=== PATIENT | female | born 1945 | race Caucasian/White ===

== ENCOUNTER 2018-12-05 09:49 | Observation (INO) | payer OTHER ==
[2018-12-05 10:05] VITALS: BMI 27.4
--- NOTE | 2018-12-05 12:43 | PDOC ---
Documentation entered by Chau Albert SCRIBE, acting as scribe for Alondra Dudley MD. Alondra Dudley MD: This documentation has been prepared by the scribe, Chau Albert SCRIBE, under my direction and personally reviewed by me in its entirety. I confirm that the documentation accurately reflects all work, treatment, procedures, and medical decision making performed by me. History of Present Illness - General Chief Complaint: Injury Stated Complaint: FALL History Source: Care Provider Exam Limitations: Dementia - History of Present Illness Initial Comments: 12/05/18 12:51 The patient is a 72 year old female with a significant past medical history of alzheimer's dementia who presents to the emergency department from home, via EM , s/p fall earlier today. It was noted via EMS that the patient experienced an unwitnessed fall this morning after eating breakfast. The patient was unable to get up without cafe assistant but was able to ambulate afterwards. The patient states that she lives at home with her :the patient has a home health aide that come to her home. She denies the use of a walker or cane to ambulate. She denies any pain or other complaints at time of exam per pt aid at bedside , states she is only with patient m/t/w only during day hours. and when she arrived this am pt was on the floor. per her who cant state what happened pt was on the floor since that time, all night. per aid , pt is currently unsteady on her feet, and appears more confused than normal. 12/05/18 16:38 Past History - Past Medical History Allergies/Adverse Reactions: Allergies Allergy/AdvReac Type Severity Reaction Status Date / Time No Known Drug Allergies Allergy Unverified 02/12/15 14:14 Home Medications: Ambulatory Orders Aspirin [Aspirin EC] 81 mg PO DAILY 12/05/18 Atorvastatin Ca [Lipitor] 20 mg PO HS 12/05/18 Ferrous Sulfate [Feosol] 325 mg PO BID 12/05/18 Fluoxetine HCl [Prozac -] 20 mg PO DAILY 12/05/18 Memantine HCl [Namenda Xr] 28 mg PO DAILY 12/05/18 Olmesartan Medoxomil [Benicar (Nf)] 40 mg PO DAILY 12/05/18 Rivastigmine 1 each TD DAILY 12/05/18 Vit B12/Levomefolate/Vit B6/B2 [Cerefolin Tablet] 1 each PO DAILY 12/05/18 COPD: No Hypercholesterolemia: Yes - Suicide/Smoking/Psychosocial Hx Smoking History: Never smoked Hx Alcohol Use: Yes (SOCIAL) Drug/Substance Use Hx: No Review of Systems - Review of Systems Able to Perform ROS?: Yes (severe dementia.) Comments:: 12/05/18 12:52 GENERAL/CONSTITUTIONAL: (+)fall. No fever or chills. No weakness. HEAD, EYES, EARS, NOSE AND THROAT: No change in vision. No ear pain or discharge. No sore throat. CARDIOVASCULAR: No chest pain or shortness of breath. RESPIRATORY: No cough, wheezing, or hemoptysis. GASTROINTESTINAL: No nausea, vomiting, diarrhea or constipation. GENITOURINARY: No dysuria, frequency, or change in urination. MUSCULOSKELETAL: No joint or muscle swelling or pain. No neck or back pain. SKIN: No rash NEUROLOGIC: No headache, vertigo, loss of consciousness, or change in strength/ sensation. ENDOCRINE: No increased thirst. No abnormal weight change. HEMATOLOGIC/LYMPHATIC: No anemia, easy bleeding, or history of blood clots. ALLERGIC/IMMUNOLOGIC: No hives or skin allergy. *Physical Exam - Vital Signs Last Vital Signs Temp Pulse Resp BP Pulse Ox 97.5 F L 82 18 132/75 100 12/05/18 10:00 12/05/18 10:00 12/05/18 10:00 12/05/18 10:00 12/05/18 10:00 - Physical Exam Comments: 12/05/18 12:41 awake alert head atrumatic. cervical spine nontender. facies symmetric. speech clear. lungs clear bilaterally heart rrr no mrg abd soft nt nd.exxt wwp . skin warm and dry. moves all four ext. alert oriented x 1. strength 5/5 all four ext symmetric. skin warm and dry no eccymosis. no rash. Heart Score/ECG Review #1 General ECG Interpretation: Sinus Rhythm, Normal Rate, Normal Intervals, No acute ischemic changes (TWI III, AVF n old comparison) ED Treatment Course - LABORATORY CBC & Chemistry Diagram: 12/05/18 12:44 12/05/18 12:44 - RADIOLOGY Radiology Studies Ordered: Category Date Time Status HEAD CT WITHOUT CONTRAST [CT] Stat CT Scan 12/05/18 12:36 Ordered CHEST - PA [RAD] Stat Radiology 12/05/18 12:38 Ordered Medical Decision Making - Medical Decision Making 12/05/18 12:39 72 yo F wit h/o antoinette, at home with family and home health aid, had unwitnessed fall todya. unsure exacetly what time. believes after she had breakfast. found on floor. initially when found pt she was awake. she was difficul tto get up off of the ground but once up she was able to ambulate. no currently complaints of pain. pt unable to provide any details of the story due to severe dementia. history per health aid. on exam nontender joing. head atraumatic. pelvis stable. pt alert oriented x 1. plan ct head syncope work up with ekg labs ua. 12/05/18 16:06 ct head negative. cxr unremarkable. labs unremarkable. concerns for syncope because pt unwitness. will admit tele obs r/o syncope dysrhtymia. 12/05/18 16:18 d/w dr prerna Vega, will admit pt tele obs. 12/05/18 16:39 Pt with unsteady gait in ED. may require PT assessmnt for safe discharge. no help thurs - weekend. may require pt and placement for safe discharge, risk of fall. reviewed workup thus far with pt aid. admitted. to telemetry. *DC/Admit/Observation/Transfer Diagnosis at time of Disposition: Syncope, Unsteady gait - Discharge Dispostion Decision to Admit order: Yes - Referrals Referrals: Genie Lane MD [Primary Care Provider] - - Patient Instructions - Post Discharge Activity
[2018-12-05 13:04] LABS: BASO % 0.6 % (0-2.0); EOS % 0.2 % (0-4.5); HEMATOCRIT 37.8 % (32.4-45.2); HEMOGLOBIN 12.7 GM/dL (10.7-15.3); LYMPH % 12.4 % (8-40); MCHC 33.7 g/dl (32.0-36.0); MEAN CELL VOLUME 88.9 fl (80-96); MEAN PLT VOLUME 7.6 fl (7.5-11.1); MONO % 8.4 % (3.8-10.2); NEUT % 78.4 % (42.8-82.8); PLATELET COUNT 221 K/MM3 (134-434); RBC 4.25 M/mm3 (3.60-5.2); RDW 14.1 % (11.6-15.6)
[2018-12-05 13:15] LABS: INR 1.07 (0.83-1.09); PROTHROMBIN TIME (PATIENT) 12.6 SEC (9.7-13.0)
[2018-12-05 13:18] LABS: ACTIVATED PTT 34.5 SECONDS (25.2-36.5)
[2018-12-05 13:31] LABS: ALBUMIN 3.7 g/dl (3.4-5.0); ALK PHOS 105 U/L (45-117); ANION GAP 9 MMOL/L (8-16); BILIRUBIN,TOTAL 0.5 mg/dL (0.2-1); BLOOD UREA NITROGEN 18 mg/dL (7-18); CALCIUM 8.4 mg/dL (8.5-10.1); CHLORIDE 108 mmol/L (98-107); CO2 25 mmol/L (21-32); CREATININE 0.7 mg/dL (0.55-1.3); GLUCOSE,RANDOM 99 mg/dL (74-106); POTASSIUM 3.7 mmol/L (3.5-5.1); SGOT/AST 32 U/L (15-37); SGPT/ALT 23 U/L (13-61); SODIUM 142 mmol/L (136-145); TOT PROT 6.8 g/dl (6.4-8.2)
--- NOTE | 2018-12-05 15:12 | EKG ---
Test Reason : Blood Pressure : / mmHG Vent. Rate : 083 BPM Atrial Rate : 083 BPM P-R Int : 144 ms QRS Dur : 086 ms QT Int : 378 ms P-R-T Axes : 015 023 012 degrees QTc Int : 444 ms NORMAL SINUS RHYTHM CANNOT RULE OUT ANTERIOR INFARCT , AGE UNDETERMINED ABNORMAL ECG WHEN COMPARED WITH ECG OF 31-DEC-2006 12:16, NO SIGNIFICANT CHANGE WAS FOUND Confirmed by KELSEA BENTLEY, JOSÉ MIGUEL ([id number]) on 12/05/2018 3:12:27 PM Referred By: Confirmed By:JOSÉ MIGUEL ENAMORADO MD
[2018-12-05] MEDS ORDERED: ACETAMINOPHEN 325 MG TABLET (FP) PO PRN (16:16)
[2018-12-05] MEDS: INSULIN SLIDING SCALE (NOVOLOG) 1 VIAL SQ SCH ×2 (18:38→21:47)
[2018-12-05] MEDS ORDERED: FERROUS SO4 325 MG TABLET (FP) ONE (21:37)
[2018-12-05] MEDS ORDERED: ATORVASTATIN CA 10 MG TABLET (FP) ONE (21:37)
[2018-12-05] MEDS: FERROUS SO4 325 MG TABLET (FP) PO SCH (21:47)
[2018-12-05] MEDS ORDERED: ATORVASTATIN CA 20 MG TABLET (FP) PO SCH (22:00)
[2018-12-06] MEDS ORDERED: LORazepam 2 MG/ML SDV VIAL IVPUSH ONE (02:16)
[2018-12-06] MEDS ORDERED: diphenhydrAMINE HCL 25 MG CAPSULE (FP) PO ONE ×2 (02:16→02:48)
[2018-12-06] MEDS ORDERED: LORazepam 2 MG/ML SDV VIAL ONE (02:48)
[2018-12-06] MEDS: INSULIN SLIDING SCALE (NOVOLOG) 1 VIAL SQ SCH ×2 (07:17→12:01)
[2018-12-06 09:02] LABS: BASO % 0.7 % (0-2.0); EOS % 1.5 % (0-4.5); HEMATOCRIT 36.7 % (32.4-45.2); HEMOGLOBIN 12.4 GM/dL (10.7-15.3); LYMPH % 17.6 % (8-40); MCH 30.3 pg (25.7-33.7); MCHC 33.9 g/dl (32.0-36.0); MEAN CELL VOLUME 89.4 fl (80-96); MEAN PLT VOLUME 7.7 fl (7.5-11.1); MONO % 12.2 % (3.8-10.2); PLATELET COUNT 190 K/MM3 (134-434); RDW 14.2 % (11.6-15.6); WHITE BLOOD COUNT 3.9 K/mm3 (4.0-10.0)
[2018-12-06 09:21] VITALS: BP 112/62; PULSE 72; TEMP 97.4
[2018-12-06] MEDS: FERROUS SO4 325 MG TABLET (FP) PO SCH (09:31)
[2018-12-06 09:36] LABS: ALBUMIN 3.2 g/dl (3.4-5.0); ALK PHOS 96 U/L (45-117); ANION GAP 7 MMOL/L (8-16); BILIRUBIN,TOTAL 0.6 mg/dL (0.2-1); BLOOD UREA NITROGEN 16 mg/dL (7-18); CALCIUM 8.3 mg/dL (8.5-10.1); CHLORIDE 107 mmol/L (98-107); CHOLESTEROL 190 mg/dL (50-200); CO2 26 mmol/L (21-32); CREATININE 0.6 mg/dL (0.55-1.3); GLUCOSE,RANDOM 83 mg/dL (74-106); HDL CHOLESTEROL 66 mg/dL (40-60); MAGNESIUM 2.4 mg/dL (1.8-2.4); PHOSPHOROUS 4.3 mg/dL (2.5-4.9); POTASSIUM 3.6 mmol/L (3.5-5.1); SGOT/AST 36 U/L (15-37); SGPT/ALT 25 U/L (13-61); SODIUM 141 mmol/L (136-145); TOT PROT 6.5 g/dl (6.4-8.2); TRIGLYCERIDES 85 mg/dL (0-150)
[2018-12-06] MEDS ORDERED: FLUoxetine HCL 20 MG CAPSULE (FP) PO SCH (10:00)
[2018-12-06] MEDS ORDERED: CYANOCOBALAMIN (VITAMIN B-12) 100 MCG TABLET PO SCH (10:00)
[2018-12-06] MEDS ORDERED: ASPIRIN COATED 81 MG TABLET.EC PO SCH (10:00)
[2018-12-06] MEDS ORDERED: VALSARTAN 160 MG TABLET (UD) PO SCH (10:00)
--- NOTE | 2018-12-06 10:26 | HP ---
Admitting History and Physical - Primary Care Physician PCP: Genie Lane - Admission Chief Complaint: s/p fall History of Present Illness: The patient is a 72 year old female with a significant past medical history of alzheimer's dementia who presents to the emergency department from home, via EM , s/p fall earlier today. It was noted via EMS that the patient experienced an unwitnessed fall this morning after eating breakfast. The patient was unable to get up without physicians assistant but was able to ambulate afterwards. The patient states that she lives at home with her :the patient has a home health aide that come to her home. per pt aid at bedside , states she is only with patient m/t/w only during day hours. and when she arrived this am pt was on the floor. per her who cant state what happened pt was on the floor since that time, all night. per aid , in ER pateint had Ct head , cxr and carotid dopplers History Source: Family Member, Medical Record - Smoking History Smoking history: Never smoked - Alcohol/Substance Use Hx Alcohol Use: Yes (SOCIAL) Home Medications - Allergies Allergies/Adverse Reactions: Allergies Allergy/AdvReac Type Severity Reaction Status Date / Time No Known Drug Allergies Allergy Verified 12/05/18 21:06 - Home Medications Home Medications: Ambulatory Orders Aspirin [Aspirin EC] 81 mg PO DAILY 12/05/18 Atorvastatin Ca [Lipitor] 20 mg PO HS 12/05/18 Ferrous Sulfate [Feosol] 325 mg PO BID 12/05/18 Fluoxetine HCl [Prozac -] 20 mg PO DAILY 12/05/18 Memantine HCl [Namenda Xr] 28 mg PO DAILY 12/05/18 Olmesartan Medoxomil [Benicar (Nf)] 40 mg PO DAILY 12/05/18 Rivastigmine 1 each TD DAILY 12/05/18 Vit B12/Levomefolate/Vit B6/B2 [Cerefolin Tablet] 1 each PO DAILY 12/05/18 Review of Systems Unable to obtain ROS, reason: confused Physical Examination Vital Signs: Vital Signs Temperature 97.4 F L 12/06/18 09:18 Pulse Rate 72 12/06/18 09:18 Respiratory Rate 16 12/06/18 09:18 Blood Pressure 112/62 12/06/18 09:18 O2 Sat by Pulse Oximetry (%) 97 12/06/18 07:20 Constitutional: Yes: Calm Cardiovascular: Yes: Regular Rate and Rhythm, S1, S2 Respiratory: Yes: CTA Bilaterally Gastrointestinal: Yes: Normal Bowel Sounds, Soft Edema: No Neurological: Yes: Confusion, Other (awake) Labs: CBC, BMP 12/06/18 08:21 12/06/18 08:21 Imaging - Results Chest X-ray: Report Reviewed (well expanded lungs no signs of infiltrate) Cat Scan: Report Reviewed (moderate atrophy) Other: Report Reviewed (small plaques at common carotid bifurcation right more than left) Problem List - Problems (1) Status post fall Assessment/Plan: PT eval son at beside wants to take mom home plan to dc patient once seen by PT to decide for walker and to have home PT arranged carotid doppler and ct head negative Code(s): Z91.81 - HISTORY OF FALLING (2) Dementia Assessment/Plan: namenda and rivastigmine Code(s): F03.90 - UNSPECIFIED DEMENTIA WITHOUT BEHAVIORAL DISTURBANCE
--- NOTE | 2018-12-06 10:36 | DS ---
Physical Examination Vital Signs: Vital Signs Temperature 97.4 F L 12/06/18 09:18 Pulse Rate 72 12/06/18 09:18 Respiratory Rate 16 12/06/18 09:18 Blood Pressure 112/62 12/06/18 09:18 O2 Sat by Pulse Oximetry (%) 97 12/06/18 07:20 Constitutional: Yes: Calm Cardiovascular: Yes: Regular Rate and Rhythm, S1, S2 Respiratory: Yes: CTA Bilaterally Gastrointestinal: Yes: Normal Bowel Sounds, Soft Edema: No Neurological: Yes: Alert, Confusion Labs: CBC, BMP 12/06/18 08:21 12/06/18 08:21 Discharge Summary Reason For Visit: SYNCOPE Current Active Problems Dementia (Acute) Status post fall (Acute) Syncope (Acute) Unsteady gait (Acute) Hospital Course: - Primary Care Physician PCP: Genie Lane - Admission Chief Complaint: s/p fall History of Present Illness: The patient is a 72 year old female with a significant past medical history of alzheimer's dementia who presents to the emergency department from home, via EM , s/p fall earlier today. It was noted via EMS that the patient experienced an unwitnessed fall this morning after eating breakfast. The patient was unable to get up without assistant store director but was able to ambulate afterwards. The patient states that she lives at home with her :the patient has a home health aide that come to her home. per pt aid at bedside , states she is only with patient m/t/w only during day hours. and when she arrived this am pt was on the floor. per her who cant state what happened pt was on the floor since that time, all night. per aid , in ER pateint had Ct head , cxr and carotid dopplers negative, labs noted plan to go home with home PT after seen by PT Condition: Guarded - Instructions Diet, Activity, Other Instructions: PT at home Referrals: Genie Lane MD [Primary Care Provider] - 2 Weeks Disposition: [facility]/HOME HEALTH CARE - Home Medications Comprehensive Discharge Medication List: Ambulatory Orders Aspirin [Aspirin EC] 81 mg PO DAILY 12/05/18 Atorvastatin Ca [Lipitor] 20 mg PO HS 12/05/18 Ferrous Sulfate [Feosol] 325 mg PO BID 12/05/18 Fluoxetine HCl [Prozac -] 20 mg PO DAILY 12/05/18 Memantine HCl [Namenda Xr] 28 mg PO DAILY 12/05/18 Olmesartan Medoxomil [Benicar (Nf)] 40 mg PO DAILY 12/05/18 Rivastigmine 1 each TD DAILY 12/05/18 Vit B12/Levomefolate/Vit B6/B2 [Cerefolin Tablet] 1 each PO DAILY 12/05/18
--- NOTE | 2018-12-06 12:15 | PN ---
Progress Note (short form) - Note Progress Note: SW has reffered case to [facility] family wants to take patient home, they have aide for 9 hr of day 5 days a week home PT with walker Problem List - Problems (1) Status post fall Code(s): Z91.81 - HISTORY OF FALLING (2) Dementia Code(s): F03.90 - UNSPECIFIED DEMENTIA WITHOUT BEHAVIORAL DISTURBANCE
== END 2018-12-06 12:56 | disposition home health service (06) ==
LOC: JER 09:49 → JERBED 16:19
PROVIDERS: ADMIT Family Medicine; ATTEND Family Medicine
PROC: 3E033GC Introduction of Other Therapeutic Substance into Peripheral Vein, Percutaneous Approach (ICD-10-PCS; principal; 2018-12-05)
DX: R55 Syncope and collapse (principal); R26.81 Unsteadiness on feet; G30.9 Alzheimer's disease, unspecified; F02.80 Dementia in other diseases classified elsewhere, unspecified severity, without behavioral disturbance, psychotic disturbance, mood disturbance, and anxiety; W19.XXXA Unspecified fall, initial encounter; Z91.81 History of falling; Y93.9 Activity, unspecified; Y92.89 Other specified places as the place of occurrence of the external cause
CPT/HCPCS: 36415; 70450-TC; 71045-TC-FY; 80053; 80061; 82550; 82553; 82962; 83721; 83735; 84100; 84436; 84443; 84484; 85025; 85610; 85730; 93005; 93010; 93880-TC; 96374; 97116-GP; 97162-GP; 99285-25; G0378